=== PATIENT | female | born 1930 | race Caucasian/White ===

== ENCOUNTER 2017-10-27 02:52 | Emergency (ER) | payer MEDICARE ==
[~2017-10-27] VITALS: Ht 162.6 cm; Wt 72.6 kg
[~2017-10-27 02:52] MED LIST: Adalat Cc30 MG PO; Aspirin EC81 MG PO; CYCL100 PO; Cipro500 MG PO; DIPATR PO; DOCU100 PO; FERR325 PO; Glyburide5 MG PO; HYDR1TAB94 PO; IRON PO; IRON150C PO; Imuran50 MG PO; K-TAB ER20 MEQ PO; LABE100 PO; LABE200 PO; LEVFLO500 PO; LOSA50 PO; LOVA40 PO; MAGNESIUM PO; METR500 PO; NIFE10 PO; NIFE30ER PO; Norco 5-325 Ta1 EACH PO; PIOG45 PO; PROB500 PO; PROM25 PO; SITA100T2 PO; VIT D PO; Zofran Odt4 MG SL; [UNRECOGNIZED DRUG - OTHER] PO
[2017-10-27 03:16] LABS: BASOPHILS ABSOLUTE AUTO 0.01 K/mm3 (0.00-0.23); BASOPHILS PERCENT AUTO 0 % (0-2); EOSINOPHILS ABSOLUTE AUTO 0.03 K/mm3 (0.00-0.68); EOSINOPHILS PERCENT AUTO 1 % (0-6); Hematocrit 28.4 % (33.0-51.0); Hemoglobin 9.6 g/dL (11.5-16.0); IMMATURE GRAN ABSOLUTE AUTO 0.03 K/mm3 (0.00-0.10); IMMATURE GRAN PERCENT AUTO 1 % (0-1); LYMPHOCYTES ABSOLUTE AUTO 0.72 K/mm3 (0.84-5.20); LYMPHOCYTES PERCENT AUTO 11 % (21-46); MONOCYTES ABSOLUTE AUTO 0.99 K/mm3 (0.16-1.47); MONOCYTES PERCENT AUTO 16 % (4-13); Mean Corpuscular HGB 31.3 pg (26.0-34.0); Mean Corpuscular HGB Conc 33.8 g/dL (31.5-36.5); Mean Corpuscular Volume 93 fL (80-100); Mean Platelet Volume 9.8 fL (9.1-12.4); NEUTROPHILS ABSOLUTE AUTO 4.56 K/mm3 (1.96-9.15); NEUTROPHILS PERCENT AUTO 72 % (41-73); Platelet Count 204 K/mm3 (150-400); RDW Coefficient Variation 14.7 % (11.7-14.2); RDW Standard Deviation 49.8 fL (35.1-46.3); Red Blood Cell Count 3.07 M/mm3 (3.80-5.20); White Blood Cell Count 6.34 K/mm3 (4.00-11.30)
[2017-10-27 03:36] LABS: Albumin, Blood 2.4 g/dL (3.4-5.0); Albumin/Globulin Ratio 0.5 (0.8-1.8); Bilirubin, Total 0.6 mg/dL (0.1-1.0); Bun/Creatinine Ratio 16.8 (12.0-20.0); Calcium, Blood 8.5 mg/dL (8.5-10.1); Creatinine, Blood 1.01 mg/dL (0.40-1.00); Globulin, Blood 4.4 g/dL (2.2-4.0); Potassium, Blood 3.4 mmol/L (3.5-5.5); Total Protein, Blood 6.8 g/dL (6.4-8.2)
[2017-10-27 04:38] LABS: Source, Urine Catheter
[2017-10-27 04:41] LABS: Appearance, Urine Clear (Clear); Bilirubin, Urine Neg (Neg); Blood, Urine 1+ (Neg); Color, Urine Amber (P-Yellow); Glucose Qualitative, Urine Neg (Neg); Ketones, Urine 1+ (Neg); Leukocyte Esterase, Urine 2+ (Neg); Nitrite, Urine Neg (Neg); Protein, Urine 2+ (Neg); Urobilinogen, Urine NORM (Normal)
[2017-10-27 04:47] LABS: Amorphous Mod (0-Heavy); Bacteria Few /hpf; Hyaline Casts 0-2 /lpf (0-2); Red Blood Cells, Urine 0-2 /hpf (0-2); Squamous Epithelial Cells Not Seen /hpf (Few)
== END 2017-10-27 05:41 | disposition home or self-care (01) ==
LOC: ER 02:52
PROVIDERS: Emergency Medicine
DX: S40.011A Contusion of right shoulder, initial encounter (principal); E86.0 Dehydration; K57.32 Diverticulitis of large intestine without perforation or abscess without bleeding; W01.198A Fall on same level from slipping, tripping and stumbling with subsequent striking against other object, initial encounter; Z88.8 Allergy status to other drugs, medicaments and biological substances; Z79.899 Other long term (current) drug therapy; Z79.82 Long term (current) use of aspirin; Z79.2 Long term (current) use of antibiotics; I10 Essential (primary) hypertension; E11.9 Type 2 diabetes mellitus without complications
CPT/HCPCS: 36415; 51798; 73030; 80053; 81001; 83690; 85025; 87086; 93005; 93010; 99284; P9612

== ENCOUNTER 2017-10-29 10:55 | Emergency (ER) | payer MEDICARE ==
[~2017-10-29] VITALS: Ht 165.1 cm; Wt 77.1 kg
[2017-10-29] MEDS ORDERED: Cyclobenzaprine5 MG PO (12:39)
== END 2017-10-29 12:56 | disposition home or self-care (01) ==
LOC: ER 10:55
DX: S40.011A Contusion of right shoulder, initial encounter (principal); I10 Essential (primary) hypertension; E11.9 Type 2 diabetes mellitus without complications; Z91.09 Other allergy status, other than to drugs and biological substances; Z79.899 Other long term (current) drug therapy; Z79.82 Long term (current) use of aspirin; W19.XXXA Unspecified fall, initial encounter
CPT/HCPCS: 82272; 99284

== ENCOUNTER 2018-12-24 07:45 | Emergency (ER) | payer MEDICARE ==
[~2018-12-24] VITALS: Ht 162.6 cm; Wt 72.6 kg
[~2018-12-24 07:45] MED LIST changes: +ACET325 PO; +Cyclobenzaprine5 MG PO; +GAVILAX17 GM PO; +GLIP5ER PO; +LEVO750 PO; +PANT40 PO; +Pred Forte1 ML BOTHEYES; +SACC250C PO
[2018-12-24] MEDS ORDERED: Valtrex1000 MG PO (08:11)
== END 2018-12-24 08:27 | disposition home or self-care (01) ==
LOC: ER 07:45
DX: B02.9 Zoster without complications (principal); Z79.899 Other long term (current) drug therapy; Z79.82 Long term (current) use of aspirin; Z91.048 Other nonmedicinal substance allergy status; Z79.52 Long term (current) use of systemic steroids; E11.9 Type 2 diabetes mellitus without complications; I10 Essential (primary) hypertension
CPT/HCPCS: 99282

== ENCOUNTER 2019-01-03 04:42 | Inpatient (IN) | payer MEDICARE ==
[~2019-01-03] VITALS: Ht 162.6 cm; Wt 75.9 kg
[~2019-01-03 04:42] MED LIST changes: +Valtrex1000 MG PO
[2019-01-03 05:00] LABS: Source, Urine Catheter
[2019-01-03 05:04] LABS: BASOPHILS ABSOLUTE AUTO 0.01 K/mm3 (0.00-0.23); BASOPHILS PERCENT AUTO 0 % (0-2); EOSINOPHILS ABSOLUTE AUTO 0.02 K/mm3 (0.00-0.68); EOSINOPHILS PERCENT AUTO 0 % (0-6); Hematocrit 25.2 % (33.0-51.0); Hemoglobin 8.5 g/dL (11.5-16.0); IMMATURE GRAN ABSOLUTE AUTO 0.04 K/mm3 (0.00-0.10); IMMATURE GRAN PERCENT AUTO 1 % (0-1); LYMPHOCYTES ABSOLUTE AUTO 0.41 K/mm3 (0.84-5.20); LYMPHOCYTES PERCENT AUTO 5 % (21-46); MONOCYTES ABSOLUTE AUTO 1.01 K/mm3 (0.16-1.47); MONOCYTES PERCENT AUTO 13 % (4-13); Mean Corpuscular HGB 32.6 pg (26.0-34.0); Mean Corpuscular HGB Conc 33.7 g/dL (31.5-36.5); Mean Corpuscular Volume 97 fL (80-100); Mean Platelet Volume 10.2 fL (9.1-12.4); NEUTROPHILS ABSOLUTE AUTO 6.27 K/mm3 (1.96-9.15); NEUTROPHILS PERCENT AUTO 81 % (41-73); Platelet Count 186 K/mm3 (150-400); RDW Coefficient Variation 14.6 % (11.7-14.2); RDW Standard Deviation 50.5 fL (35.1-46.3); Red Blood Cell Count 2.61 M/mm3 (3.80-5.20); White Blood Cell Count 7.76 K/mm3 (4.00-11.30)
[2019-01-03 05:05] LABS: Blood, Urine 1+ (Neg); Glucose Qualitative, Urine Neg (Neg); Ketones, Urine 1+ (Neg); Leukocyte Esterase, Urine 3+ (Neg); Nitrite, Urine Neg (Neg); Protein, Urine 2+ (Neg); Specific Gravity, Urine 1.015 (1.003-1.022); Urobilinogen, Urine 1+ (Normal)
[2019-01-03 05:10] LABS: Appearance, Urine Cloudy (Clear); Bilirubin, Urine 1+ (Neg); Color, Urine Amber (P-Yellow)
[2019-01-03 05:11] LABS: Amorphous Light (0-Heavy); Bacteria Many /hpf; Red Blood Cells, Urine 0-2 /hpf (0-2); Squamous Epithelial Cells Few /hpf (Few); White Blood Cells, Urine 50-100 /hpf (0-5)
[2019-01-03] MEDS ORDERED: INSR10I SC (05:17)
[2019-01-03] MEDS ORDERED: [UNRECOGNIZED DRUG - OTHER] (05:18)
[2019-01-03 05:22] LABS: Albumin, Blood 2.1 g/dL (3.4-5.0); Albumin/Globulin Ratio 0.5 (0.8-1.8); Bilirubin, Total 0.7 mg/dL (0.1-1.0); Bun/Creatinine Ratio 28.8 (12.0-20.0); Calcium, Blood 8.5 mg/dL (8.5-10.1); Creatinine, Blood 1.46 mg/dL (0.40-1.00); Globulin, Blood 4.2 g/dL (2.2-4.0); Potassium, Blood 3.7 mmol/L (3.5-5.5); Total Protein, Blood 6.3 g/dL (6.4-8.2)
--- NOTE | 2019-01-03 06:44 | NUR ---
Transfer report from Felicita MILIAN in ER recieved on 88 year old Female with hx of renal transplant and type 2 diabetes UTI, recent shingles currently dry, weakness, acute renal failure. Await admission.
[2019-01-03] MEDS ORDERED: Adalat Cc30 MG PO (08:25)
[2019-01-03] MEDS ORDERED: BASAGLAR K100 UNIT/1 SC (08:47)
[2019-01-03] MEDS ORDERED: LOSARTAN POTASS25 M2 (08:47)
[2019-01-03] MEDS ORDERED: CALC.25 (08:47)
--- NOTE | 2019-01-03 18:52 | NUR ---
SHIFT SUMMARY PT IS A NEW ADMISSION THIS AM AT SHIFT CHANGE. PT HAS BEEN SLEEPING A LOT OF THE SHIFT. MEDICATED FOR PAIN X1 THIS SHIFT. PT REPORTS FEELING BETTER. PT UP TO CHAIR WITH OT BUT BECAME VERY WEAK AND REQUESTED TO GO BACK TO BED. ONE PERSON ASSIST TO BED. IVF INFUSING WITHOUT DIFFICULTY. PT HAS HAD NO FURTHER REQUESTS OR COMPLAINTS THIS SHIFT. NO ACUTE CHANGES. CALL LIGHT IN REACH. WILL CONTINUE TO MONITOR AND REPORT TO ONCOMING RN.
--- NOTE | 2019-01-03 19:50 | NUR ---
DR Meet Miranda. called about consult. He rx to check cyclosporine level in AM. He will see PT later tonight. PT informed.
[2019-01-04 04:51] LABS: BASOPHILS ABSOLUTE AUTO 0.01 K/mm3 (0.00-0.23); BASOPHILS PERCENT AUTO 0 % (0-2); EOSINOPHILS ABSOLUTE AUTO 0.04 K/mm3 (0.00-0.68); EOSINOPHILS PERCENT AUTO 1 % (0-6); Hematocrit 25.9 % (33.0-51.0); Hemoglobin 9.1 g/dL (11.5-16.0); IMMATURE GRAN ABSOLUTE AUTO 0.03 K/mm3 (0.00-0.10); IMMATURE GRAN PERCENT AUTO 0 % (0-1); LYMPHOCYTES ABSOLUTE AUTO 0.46 K/mm3 (0.84-5.20); LYMPHOCYTES PERCENT AUTO 6 % (21-46); MONOCYTES PERCENT AUTO 13 % (4-13); Mean Corpuscular HGB Conc 35.1 g/dL (31.5-36.5); Mean Corpuscular Volume 97 fL (80-100); Mean Platelet Volume 9.9 fL (9.1-12.4); NEUTROPHILS ABSOLUTE AUTO 6.13 K/mm3 (1.96-9.15); NEUTROPHILS PERCENT AUTO 80 % (41-73); Platelet Count 193 K/mm3 (150-400); RDW Coefficient Variation 14.9 % (11.7-14.2); RDW Standard Deviation 51.8 fL (35.1-46.3); Red Blood Cell Count 2.68 M/mm3 (3.80-5.20); White Blood Cell Count 7.67 K/mm3 (4.00-11.30)
[2019-01-04 05:13] LABS: Albumin, Blood 1.7 g/dL (3.4-5.0); Anion Gap 9 mmol/L (6-16); Blood Urea Nitrogen 43 mg/dL (8-24); Bun/Creatinine Ratio 38.1 (12.0-20.0); CO2, Blood 20 mmol/L (21-32); CPK Creatine Kinase 548 U/L (26-193); Calcium, Blood 7.8 mg/dL (8.5-10.1); Chloride, Blood 105 mmol/L (98-108); Creatinine, Blood 1.13 mg/dL (0.40-1.00); Glomerular Filtration Rate 48 (60-); Glucose, Blood 253 mg/dL (70-99); Magnesium, Blood 1.9 mg/dL (1.6-2.4); Potassium, Blood 3.6 mmol/L (3.5-5.5); Sodium, Blood 134 mmol/L (136-145); Uric Acid, Blood 5.8 mg/dL (2.6-6.0)
--- NOTE | 2019-01-04 06:23 | NUR ---
Dr Reinier Dsouza in to see PT prior to midnight and reviewed plan of care for renal transplant PT withg recent MIKHAIL. PT familar with DR Dsouza and she shared grief over loss of spouse of 70 years last month. PT says she has 2 supportive Sons who assist her to stay in her own home.
--- NOTE | 2019-01-04 18:00 | NUR ---
SHIFT SUMMARY PATIENT DENIES NAUSEA AND SHORTNESS OF BREATH. PATIENT COMPLAINS OF ABDOMINAL PAIN AND HAS RUN LOW GRADE FEVER. TYLENOL GIVEN. NEW ORDERS FOR ENEMA AND SUPPOSITORY GIVEN. PATIENT HAD LARGE BM, STATES SHE IS FEELING SOMEWHAT BETTER. PATIENT WORKED WITH PT/OT TODAY. PATIENT UP ONE ASSIST W/FWW. CALL LIGHT IN REACH.
--- NOTE | 2019-01-04 18:18 | NUR ---
[facility] inital note: Mrs. Parikh was alone in room and told me she was "too tired" for visit. Then she began to talk about the loss of her last month and her many struggles leading up to his . They were 70 years. She responded well to theraputic listening and emotional normalization. She is non-caodaism, but appered to benefit from gentle budget counselor. Clearly, she is grieving and will benefit from continued budget counselor/support. I will continue to budget counselor as case-loead permits.
[2019-01-05 05:15] LABS: BASOPHILS ABSOLUTE AUTO 0.01 K/mm3 (0.00-0.23); BASOPHILS PERCENT AUTO 0 % (0-2); EOSINOPHILS ABSOLUTE AUTO 0.06 K/mm3 (0.00-0.68); EOSINOPHILS PERCENT AUTO 1 % (0-6); Hematocrit 24.5 % (33.0-51.0); Hemoglobin 8.3 g/dL (11.5-16.0); IMMATURE GRAN ABSOLUTE AUTO 0.05 K/mm3 (0.00-0.10); IMMATURE GRAN PERCENT AUTO 1 % (0-1); LYMPHOCYTES ABSOLUTE AUTO 0.44 K/mm3 (0.84-5.20); LYMPHOCYTES PERCENT AUTO 6 % (21-46); MONOCYTES ABSOLUTE AUTO 0.94 K/mm3 (0.16-1.47); MONOCYTES PERCENT AUTO 12 % (4-13); Mean Corpuscular HGB 32.2 pg (26.0-34.0); Mean Corpuscular HGB Conc 33.9 g/dL (31.5-36.5); Mean Corpuscular Volume 95 fL (80-100); Mean Platelet Volume 9.8 fL (9.1-12.4); NEUTROPHILS ABSOLUTE AUTO 6.08 K/mm3 (1.96-9.15); NEUTROPHILS PERCENT AUTO 80 % (41-73); Platelet Count 204 K/mm3 (150-400); RDW Coefficient Variation 15.3 % (11.7-14.2); RDW Standard Deviation 52.6 fL (35.1-46.3); Red Blood Cell Count 2.58 M/mm3 (3.80-5.20); White Blood Cell Count 7.58 K/mm3 (4.00-11.30)
[2019-01-05 05:41] LABS: Albumin, Blood 1.5 g/dL (3.4-5.0); Amylase, Blood 14 U/L (25-115); Anion Gap 8 mmol/L (6-16); Blood Urea Nitrogen 29 mg/dL (8-24); Bun/Creatinine Ratio 40.1 (12.0-20.0); CO2, Blood 19 mmol/L (21-32); Calcium, Blood 7.6 mg/dL (8.5-10.1); Chloride, Blood 108 mmol/L (98-108); Creatinine, Blood 0.72 mg/dL (0.40-1.00); Glomerular Filtration Rate >60 (60-); Glucose, Blood 202 mg/dL (70-99); Magnesium, Blood 1.8 mg/dL (1.6-2.4); Phosphorus, Blood 2.2 mg/dL (2.5-4.9); Potassium, Blood 3.7 mmol/L (3.5-5.5); Sodium, Blood 135 mmol/L (136-145)
--- NOTE | 2019-01-05 06:42 | NUR ---
SHIFT SUMMARY PT A/O NO C/O PAIN. SBA TO BA. SHE WAS ABLE TO SLEEP T/O NIGHT. CALL LIGHT IN REACH.
--- NOTE | 2019-01-05 15:19 | NUR ---
SHIFT SUMMARY NO ACUTE CHANGES. PATIENT DENIES PAIN, NAUSEA, AND SHORTNESS OF BREATH. PATIENT UP IN CHAIR FOR MEALS, WORKED WITH PT AND OT. KIM REPORTS SHE IS FEELING BETTER BUT STILL TIRED AND STIFF WITH MOVEMENT. CALL LIGHT IN REACH.
[2019-01-06 05:09] LABS: Hematocrit 24.3 % (33.0-51.0); Hemoglobin 8.2 g/dL (11.5-16.0)
[2019-01-06 05:45] LABS: Magnesium, Blood 1.9 mg/dL (1.6-2.4)
[2019-01-06 05:46] LABS: Albumin, Blood 1.6 g/dL (3.4-5.0); Anion Gap 10 mmol/L (6-16); Blood Urea Nitrogen 22 mg/dL (8-24); Bun/Creatinine Ratio 35.4 (12.0-20.0); CO2, Blood 20 mmol/L (21-32); Calcium, Blood 7.8 mg/dL (8.5-10.1); Chloride, Blood 108 mmol/L (98-108); Creatinine, Blood 0.62 mg/dL (0.40-1.00); Glomerular Filtration Rate >60 (60-); Glucose, Blood 166 mg/dL (70-99); Phosphorus, Blood 2.4 mg/dL (2.5-4.9); Potassium, Blood 3.7 mmol/L (3.5-5.5); Sodium, Blood 138 mmol/L (136-145)
--- NOTE | 2019-01-06 06:08 | NUR ---
SHIFT SUMMARY PT A/O C/O PAIN IN ABD AND MEDICATED PER EMAR. SHE SAID IT WAS ABLE TO RELIEVE HER PAIN. SHE WAS ABLE TO SLEEP ON AND OFF T/O NIGHT. SBA TO BSC. BED ALARM IN USE. CALL LIGHT IN REACH.
[2019-01-06 10:02] LABS: BASOPHILS ABSOLUTE AUTO 0.01 K/mm3 (0.00-0.23); BASOPHILS PERCENT AUTO 0 % (0-2); EOSINOPHILS ABSOLUTE AUTO 0.12 K/mm3 (0.00-0.68); EOSINOPHILS PERCENT AUTO 2 % (0-6); Hematocrit 24.8 % (33.0-51.0); Hemoglobin 8.4 g/dL (11.5-16.0); IMMATURE GRAN ABSOLUTE AUTO 0.05 K/mm3 (0.00-0.10); IMMATURE GRAN PERCENT AUTO 1 % (0-1); LYMPHOCYTES ABSOLUTE AUTO 0.65 K/mm3 (0.84-5.20); LYMPHOCYTES PERCENT AUTO 9 % (21-46); MONOCYTES ABSOLUTE AUTO 0.84 K/mm3 (0.16-1.47); MONOCYTES PERCENT AUTO 12 % (4-13); Mean Corpuscular HGB 32.9 pg (26.0-34.0); Mean Corpuscular HGB Conc 33.9 g/dL (31.5-36.5); Mean Corpuscular Volume 97 fL (80-100); Mean Platelet Volume 10.1 fL (9.1-12.4); NEUTROPHILS ABSOLUTE AUTO 5.36 K/mm3 (1.96-9.15); NEUTROPHILS PERCENT AUTO 76 % (41-73); Platelet Count 244 K/mm3 (150-400); RDW Coefficient Variation 15.5 % (11.7-14.2); RDW Standard Deviation 54.9 fL (35.1-46.3); Red Blood Cell Count 2.55 M/mm3 (3.80-5.20); White Blood Cell Count 7.03 K/mm3 (4.00-11.30)
--- NOTE | 2019-01-06 18:22 | NUR ---
SHIFT SUMMARY NO ACUTE COCNERNS PER PATIENT. SHE IS PELASANT, AND MOVING INDEPENDENT IN THE ROOM. CALLS APPROPRIATELY, AND ALERT AND ORIENTED.
--- NOTE | 2019-01-07 04:50 | NUR ---
SHIFT SUMMARY PT REPORTS SHE IS FEELING "WEAKER" TONIGHT. SBA TO BSC, PT REQUIRES A FEW EXTRA MINS TO SIT AT SIDE OF BED D/T FEELING DIZZY. LS DIM, WITH AUDIBLE WHEEZE AND SOB UPON EXERTION. O2 SATS WNL ON RA. ABD MOD DISTENDED, BT NORMOACTIVE X4. CBG 193 TONIGHT, ADMINISTERED 10 UNITS LANTUS PER ORDERS. WILL CONT T MONITOR AND PROVIDE CARE UNTIL PRESUMED BY ONCOMING RN.
[2019-01-07 05:20] LABS: BASOPHILS ABSOLUTE AUTO 0.01 K/mm3 (0.00-0.23); BASOPHILS PERCENT AUTO 0 % (0-2); EOSINOPHILS ABSOLUTE AUTO 0.15 K/mm3 (0.00-0.68); EOSINOPHILS PERCENT AUTO 3 % (0-6); Hematocrit 24.2 % (33.0-51.0); Hemoglobin 8.1 g/dL (11.5-16.0); IMMATURE GRAN ABSOLUTE AUTO 0.06 K/mm3 (0.00-0.10); IMMATURE GRAN PERCENT AUTO 1 % (0-1); LYMPHOCYTES ABSOLUTE AUTO 0.71 K/mm3 (0.84-5.20); LYMPHOCYTES PERCENT AUTO 13 % (21-46); MONOCYTES ABSOLUTE AUTO 0.73 K/mm3 (0.16-1.47); MONOCYTES PERCENT AUTO 14 % (4-13); Mean Corpuscular HGB 31.6 pg (26.0-34.0); Mean Corpuscular HGB Conc 33.5 g/dL (31.5-36.5); Mean Corpuscular Volume 95 fL (80-100); Mean Platelet Volume 9.6 fL (9.1-12.4); NEUTROPHILS ABSOLUTE AUTO 3.76 K/mm3 (1.96-9.15); NEUTROPHILS PERCENT AUTO 69 % (41-73); Platelet Count 281 K/mm3 (150-400); RDW Coefficient Variation 15.5 % (11.7-14.2); RDW Standard Deviation 53.3 fL (35.1-46.3); Red Blood Cell Count 2.56 M/mm3 (3.80-5.20); White Blood Cell Count 5.42 K/mm3 (4.00-11.30)
[2019-01-07 05:46] LABS: Albumin, Blood 1.7 g/dL (3.4-5.0); Anion Gap 8 mmol/L (6-16); Blood Urea Nitrogen 14 mg/dL (8-24); Bun/Creatinine Ratio 26.8 (12.0-20.0); CO2, Blood 22 mmol/L (21-32); Calcium, Blood 7.7 mg/dL (8.5-10.1); Chloride, Blood 106 mmol/L (98-108); Creatinine, Blood 0.52 mg/dL (0.40-1.00); Glomerular Filtration Rate >60 (60-); Glucose, Blood 137 mg/dL (70-99); Magnesium, Blood 1.8 mg/dL (1.6-2.4); Phosphorus, Blood 2.7 mg/dL (2.5-4.9); Potassium, Blood 3.9 mmol/L (3.5-5.5); Sodium, Blood 136 mmol/L (136-145)
--- NOTE | 2019-01-07 18:52 | NUR ---
SHIFT SUMMARY PATIENT IS PLEASANT, NO ACUTE CONCERNS. CALLS APPROPRIATELY. SHE IS PLEASANT AND HAS WORKED ON WALKING MORE TODAY.
[2019-01-08 04:36] LABS: BASOPHILS ABSOLUTE AUTO 0.01 K/mm3 (0.00-0.23); BASOPHILS PERCENT AUTO 0 % (0-2); EOSINOPHILS ABSOLUTE AUTO 0.19 K/mm3 (0.00-0.68); EOSINOPHILS PERCENT AUTO 3 % (0-6); Hematocrit 26.1 % (33.0-51.0); Hemoglobin 8.7 g/dL (11.5-16.0); IMMATURE GRAN ABSOLUTE AUTO 0.06 K/mm3 (0.00-0.10); IMMATURE GRAN PERCENT AUTO 1 % (0-1); LYMPHOCYTES PERCENT AUTO 16 % (21-46); MONOCYTES ABSOLUTE AUTO 0.74 K/mm3 (0.16-1.47); MONOCYTES PERCENT AUTO 13 % (4-13); Mean Corpuscular HGB 31.8 pg (26.0-34.0); Mean Corpuscular HGB Conc 33.3 g/dL (31.5-36.5); Mean Corpuscular Volume 95 fL (80-100); Mean Platelet Volume 9.2 fL (9.1-12.4); NEUTROPHILS ABSOLUTE AUTO 3.63 K/mm3 (1.96-9.15); NEUTROPHILS PERCENT AUTO 66 % (41-73); Platelet Count 325 K/mm3 (150-400); RDW Coefficient Variation 15.7 % (11.7-14.2); RDW Standard Deviation 54.4 fL (35.1-46.3); Red Blood Cell Count 2.74 M/mm3 (3.80-5.20); White Blood Cell Count 5.53 K/mm3 (4.00-11.30)
[2019-01-08 04:56] LABS: Albumin, Blood 1.8 g/dL (3.4-5.0); Anion Gap 9 mmol/L (6-16); Blood Urea Nitrogen 15 mg/dL (8-24); Bun/Creatinine Ratio 27.8 (12.0-20.0); CO2, Blood 22 mmol/L (21-32); Calcium, Blood 8.1 mg/dL (8.5-10.1); Chloride, Blood 109 mmol/L (98-108); Creatinine, Blood 0.54 mg/dL (0.40-1.00); Glomerular Filtration Rate >60 (60-); Glucose, Blood 143 mg/dL (70-99); Magnesium, Blood 1.8 mg/dL (1.6-2.4); Phosphorus, Blood 3.1 mg/dL (2.5-4.9); Potassium, Blood 4.1 mmol/L (3.5-5.5); Sodium, Blood 140 mmol/L (136-145)
--- NOTE | 2019-01-08 05:08 | NUR ---
SHIFT SUMMARY NO ACUTE CHANGES TONIGHT, PT IS PLEASANT AND COOPERATIVE WITH CARE. PT IS WORKING ON IMPROVING STRENGTH, EXERCISE, AND AMBULATION/GAIT. AMBULATES SEVERAL TIMES T/O NIGHT TO BR WITH MINIMAL ASSISTANCE. SBA c FWW. PT VOICES MOTIVATION TO IMPROVE STRENGTH. CBG 171 TONIGHT, ADMINISTERED 10 UNITS LANTUS PER EMAR. WILL CONT TO MONITOR AND PROVIDE CARE UNTIL PRESUMED BY ONCOMING RN.
[2019-01-08] MEDS ORDERED: LEVFLO500 PO (11:33)
[2019-01-08] MEDS ORDERED: Florastor250 MG PO (11:34)
--- NOTE | 2019-01-08 13:39 | NUR ---
DISCHARGE SUMMARY PATIENT IS PLEASANT, NO ACUTE CONCERNS. ALL INFORMATION WAS GIVEN TO THE PATIENT AND HER MEDICATIONS WERE SENT TO [facility].
== END 2019-01-08 13:05 | disposition home or self-care (01) | DRG 872 ==
LOC: ER 04:42 → MEDS 06:14 → ENPENDDIS 01-08 10:50 → MEDS 01-08 13:05
PROVIDERS: Emergency Medicine; Family Medicine; Internal Medicine; Internal Medicine Gastroenterology; Internal Medicine Nephrology; ADMIT Hospitalist
DX: A41.9 Sepsis, unspecified organism (principal); N17.9 Acute kidney failure, unspecified; E87.1 Hypo-osmolality and hyponatremia; N12 Tubulo-interstitial nephritis, not specified as acute or chronic; T86.12 Kidney transplant failure; B96.20 Unspecified Escherichia coli [E. coli] as the cause of diseases classified elsewhere; E11.9 Type 2 diabetes mellitus without complications; Z79.4 Long term (current) use of insulin; Z79.82 Long term (current) use of aspirin
CPT/HCPCS: 36415; 51702; 71045; 74176; 76776; 80053; 80069; 80158; 81001; 82150; 82533; 82550; 82947; 83605; 83690; 83735; 83880; 84443; 84550; 85014; 85018; 85025; 87040; 87077; 87086; 87186; 96361-59; 96365-59; 97110; 97116; 97162; 97165; 97530; 97535; 99285-25; A9270; C9113; J0696; J0713; J0881; J1644; J1650; J3480; J7030; J7060; J7500; J7502

== ENCOUNTER 2019-01-10 01:20 | Inpatient (IN) | payer MEDICARE ==
[~2019-01-10] VITALS: Ht 162.6 cm; Wt 83.9 kg
[~2019-01-10 01:20] MED LIST changes: +BASAGLAR K100 UNIT/1 SC; +CALC.25; +Florastor250 MG PO; +INSR10I SC; +LOSARTAN POTASS25 M2; +[UNRECOGNIZED DRUG - OTHER]
[2019-01-10 01:51] LABS: BASOPHILS ABSOLUTE AUTO 0.01 K/mm3 (0.00-0.23); BASOPHILS PERCENT AUTO 0 % (0-2); EOSINOPHILS ABSOLUTE AUTO 0.11 K/mm3 (0.00-0.68); EOSINOPHILS PERCENT AUTO 2 % (0-6); Hematocrit 23.6 % (33.0-51.0); IMMATURE GRAN ABSOLUTE AUTO 0.07 K/mm3 (0.00-0.10); IMMATURE GRAN PERCENT AUTO 1 % (0-1); LYMPHOCYTES ABSOLUTE AUTO 0.97 K/mm3 (0.84-5.20); LYMPHOCYTES PERCENT AUTO 17 % (21-46); MONOCYTES ABSOLUTE AUTO 0.65 K/mm3 (0.16-1.47); MONOCYTES PERCENT AUTO 11 % (4-13); Mean Corpuscular HGB 32.4 pg (26.0-34.0); Mean Corpuscular HGB Conc 33.9 g/dL (31.5-36.5); Mean Corpuscular Volume 96 fL (80-100); Mean Platelet Volume 9.2 fL (9.1-12.4); NEUTROPHILS ABSOLUTE AUTO 4.05 K/mm3 (1.96-9.15); NEUTROPHILS PERCENT AUTO 69 % (41-73); Platelet Count 381 K/mm3 (150-400); RDW Coefficient Variation 15.5 % (11.7-14.2); RDW Standard Deviation 54.4 fL (35.1-46.3); Red Blood Cell Count 2.47 M/mm3 (3.80-5.20); White Blood Cell Count 5.86 K/mm3 (4.00-11.30)
[2019-01-10 02:11] LABS: Alanine Aminotransfer (ALT/SGP 21 U/L (12-78); Albumin/Globulin Ratio 0.4 (0.8-1.8); Alk Phos 96 U/L (50-136); Anion Gap 11 mmol/L (6-16); Aspartate Aminotrans (AST/SGOT 25 U/L (12-37); Bilirubin, Total 0.6 mg/dL (0.1-1.0); Blood Urea Nitrogen 23 mg/dL (8-24); Bun/Creatinine Ratio 26.2 (12.0-20.0); CO2, Blood 21 mmol/L (21-32); Calcium, Blood 7.9 mg/dL (8.5-10.1); Chloride, Blood 101 mmol/L (98-108); Creatinine, Blood 0.88 mg/dL (0.40-1.00); Globulin, Blood 4.7 g/dL (2.2-4.0); Glomerular Filtration Rate >60 (60-); Glucose, Blood 217 mg/dL (70-99); Potassium, Blood 4.4 mmol/L (3.5-5.5); Sodium, Blood 133 mmol/L (136-145); Total Protein, Blood 6.7 g/dL (6.4-8.2)
[2019-01-10 03:34] LABS: Source, Urine Clean Catch
[2019-01-10 03:35] LABS: Bilirubin, Urine Neg (Neg); Blood, Urine Neg (Neg); Glucose Qualitative, Urine Neg (Neg); Ketones, Urine Neg (Neg); Leukocyte Esterase, Urine Neg (Neg); Nitrite, Urine Neg (Neg); Protein, Urine 1+ (Neg); Urobilinogen, Urine NORM (Normal)
[2019-01-10 03:38] LABS: Appearance, Urine Clear (Clear); Color, Urine Yellow (P-Yellow)
--- NOTE | 2019-01-10 18:19 | NUR ---
ALERT. ORIENTED. FORGETFUL. UNLABORED RESPIRATIONS. SATS HIGH 90'S ON R.A. HAS NOT C/O PAIN. GIL DRAINING. ASSOCIATE DIRECTOR REGULATORY AFFAIRS ADVISED WILL NEED NEW IV WILL BE GETTING BLOOD TRANSFUSION. ONE PERSON STANDBY ASSIST. TELE ON AND PER NED ORTIZ AT 75. BED IN LOW POSITION. CALL LIGHT WITHIN REACH. [facility]
--- NOTE | 2019-01-10 22:15 | NUR ---
DR Meet Miranda. in to see PT and RX 1 x order lasix 20 mg IV 1/[address] way through blood transfusion. PT tolerating blood transfusion without problems. Cordova cath patent draining large amts of clear urine.
--- NOTE | 2019-01-11 03:08 | NUR ---
PT tolerated blood transfusion and DR Dsouza came and gave order to give 20 mg IV lasix 1/2 way through blood transfusion. She has peraza cath and has had large amts of clear yellow urine out. PT has around 2000 ml out this shift plus more. She was up and had pelleted stool which was sent to lab for guiac. Bowel care orders obtained for sennecot and additional stool softener prn. PT on tele with frequent PVC PAC. rate 72. Blood glucose elevated at 202 with sliding scale and lantus insulin given. Recent dc from hospital and only home 2 days prior to readmission. had sepsis in Apr 2018. Hx of renal transplant 1994 and prior dialysis last 1994.
[2019-01-11 05:05] LABS: BASOPHILS ABSOLUTE AUTO 0.01 K/mm3 (0.00-0.23); BASOPHILS PERCENT AUTO 0 % (0-2); EOSINOPHILS ABSOLUTE AUTO 0.14 K/mm3 (0.00-0.68); EOSINOPHILS PERCENT AUTO 3 % (0-6); Hematocrit 28.3 % (33.0-51.0); Hemoglobin 9.3 g/dL (11.5-16.0); IMMATURE GRAN ABSOLUTE AUTO 0.04 K/mm3 (0.00-0.10); IMMATURE GRAN PERCENT AUTO 1 % (0-1); LYMPHOCYTES ABSOLUTE AUTO 0.88 K/mm3 (0.84-5.20); LYMPHOCYTES PERCENT AUTO 16 % (21-46); MONOCYTES ABSOLUTE AUTO 0.63 K/mm3 (0.16-1.47); MONOCYTES PERCENT AUTO 11 % (4-13); Mean Corpuscular HGB 31.1 pg (26.0-34.0); Mean Corpuscular HGB Conc 32.9 g/dL (31.5-36.5); Mean Corpuscular Volume 95 fL (80-100); Mean Platelet Volume 9.4 fL (9.1-12.4); NEUTROPHILS ABSOLUTE AUTO 3.86 K/mm3 (1.96-9.15); NEUTROPHILS PERCENT AUTO 70 % (41-73); Platelet Count 410 K/mm3 (150-400); RDW Coefficient Variation 17.1 % (11.7-14.2); RDW Standard Deviation 57.9 fL (35.1-46.3); Red Blood Cell Count 2.99 M/mm3 (3.80-5.20); White Blood Cell Count 5.56 K/mm3 (4.00-11.30)
[2019-01-11 05:23] LABS: Alanine Aminotransfer (ALT/SGP 18 U/L (12-78); Albumin, Blood 1.9 g/dL (3.4-5.0); Albumin/Globulin Ratio 0.4 (0.8-1.8); Alk Phos 94 U/L (50-136); Anion Gap 9 mmol/L (6-16); Aspartate Aminotrans (AST/SGOT 12 U/L (12-37); Bilirubin, Total 0.7 mg/dL (0.1-1.0); Blood Urea Nitrogen 20 mg/dL (8-24); Bun/Creatinine Ratio 25.2 (12.0-20.0); CO2, Blood 26 mmol/L (21-32); Calcium, Blood 8.1 mg/dL (8.5-10.1); Chloride, Blood 103 mmol/L (98-108); Creatinine, Blood 0.79 mg/dL (0.40-1.00); Globulin, Blood 4.7 g/dL (2.2-4.0); Glomerular Filtration Rate >60 (60-); Glucose, Blood 165 mg/dL (70-99); Magnesium, Blood 1.5 mg/dL (1.6-2.4); Phosphorus, Blood 3.5 mg/dL (2.5-4.9); Potassium, Blood 4.3 mmol/L (3.5-5.5); Sodium, Blood 138 mmol/L (136-145); Total Protein, Blood 6.6 g/dL (6.4-8.2)
[2019-01-11 06:32] LABS: Stool Occult Blood Guaiac 1 Neg (Neg)
--- NOTE | 2019-01-11 09:12 | NUR ---
ASKED ABOUT MAG P.O. JUST GAVE IV MAG 1GRAM. DON'T GIVE THIS AM BUT CAN LEAVE ON FOR REST OF WEEK. CAN D'C TELE.
--- NOTE | 2019-01-11 16:01 | NUR ---
ALERT. ORIENTED. FORGETFUL. 24 HOUR URINE STARTED. CATH CARE. DENIES ABD PAIN. IV PATENT. UNLABORED RESPIRATIONS. ONE PERSON STANDBY ASSIST. PLEASANT. COOPERATIVE. TELE D'C. BED IN LOW POSITION. ABLE TO MAKE NEEDS KNOWN. WCTM.
--- NOTE | 2019-01-12 02:13 | NUR ---
PT continues on 24 hour urine collection and continues with peraza cath for urinary retention. She has blood glucose checks ac hs and bg elevated at 292. On LANTUS & low sliding scale insulin. On cardiac meds with some elevated BPS. Tele was dc. Denies acute pain. Continues constipated sennakot given as prn to tx with no effect yet.
[2019-01-12 05:09] LABS: Hematocrit 30.6 % (33.0-51.0); Hemoglobin 10.1 g/dL (11.5-16.0)
[2019-01-12 05:32] LABS: Albumin, Blood 2.1 g/dL (3.4-5.0); Anion Gap 8 mmol/L (6-16); Blood Urea Nitrogen 20 mg/dL (8-24); Bun/Creatinine Ratio 29.9 (12.0-20.0); CO2, Blood 27 mmol/L (21-32); Calcium, Blood 8.7 mg/dL (8.5-10.1); Chloride, Blood 102 mmol/L (98-108); Creatinine, Blood 0.67 mg/dL (0.40-1.00); Glomerular Filtration Rate >60 (60-); Glucose, Blood 165 mg/dL (70-99); Magnesium, Blood 1.8 mg/dL (1.6-2.4); Potassium, Blood 4.1 mmol/L (3.5-5.5); Sodium, Blood 137 mmol/L (136-145)
[2019-01-12 09:49] LABS: Protein, Urine Quantitative 17.3 mg/dL (0.0-11.9)
--- NOTE | 2019-01-12 17:31 | NUR ---
SHIFT SUMMARY 24 HR URINE COLLECTION COMPLETED, JEFFERY IA-ED. PT ALERT AND ORIENTED X4, AMBULATES TO CHAIR WITH 1 ASSIST. PT DENIES PAIN, SOB, NAUSEA, HAS MINIMAL EDEMA. 1X SUPPOSITORY ORDERED AND GIVEN. PATIENT HAD MEDIUM FORMED BROWN BM IN COMMODE AND VOIDED GOOD AMOUNT OF URINE. BLOOD SUGARS MONITORED AND REGULAR INSULIN GIVEN PER SS ORDER. WILL CONTINUE TO MONITOR OUTPUT.
--- NOTE | 2019-01-13 04:52 | NUR ---
PATIENT SLEPT WEL THROUGH THE NIGHT. PATIENT UP TO THE BATHROOM WITH SBA AND WALKER. PATIENT WALKING TO THE BATHROOM, STEADY ON HER FEET. PATIENT ABLE TO MOVE AROUND IN BED INDEPENDENTLY. PATIENT DENIES ANY PAIN. CALL LIGHT WITH IN REACH. VITALS STABLE.
[2019-01-13 04:55] LABS: Hematocrit 31.3 % (33.0-51.0)
[2019-01-13 05:25] LABS: Albumin, Blood 2.2 g/dL (3.4-5.0); Anion Gap 7 mmol/L (6-16); Blood Urea Nitrogen 25 mg/dL (8-24); Bun/Creatinine Ratio 38.2 (12.0-20.0); CO2, Blood 28 mmol/L (21-32); Calcium, Blood 9.1 mg/dL (8.5-10.1); Chloride, Blood 101 mmol/L (98-108); Creatinine, Blood 0.66 mg/dL (0.40-1.00); Glomerular Filtration Rate >60 (60-); Glucose, Blood 194 mg/dL (70-99); Magnesium, Blood 1.7 mg/dL (1.6-2.4); Phosphorus, Blood 3.2 mg/dL (2.5-4.9); Potassium, Blood 4.3 mmol/L (3.5-5.5); Sodium, Blood 136 mmol/L (136-145)
--- NOTE | 2019-01-13 06:00 | NUR ---
PATIENT COMPLAINING OF PAIN OF 8/10 IN RIGHT ARM WHERE BLOOD WAS TAKEN. PATIENT STATES THE PAIN HAS BEEN GETTING WORSE SINCE THE LABS WERE DRAWN. GIVEN PRN FENTANYL AND WARM BLANKET.
--- NOTE | 2019-01-13 06:15 | NUR ---
DR. SHEEHAN CALLED AT 0535 TO CHECK LABS. TAKEN ORDERS FOR KCL 8MEQ PO QOD STARTING TOMORROW, AND LASIX 40 MG QOD STARTING TOMORROW. DISCONTINUE LASIX 20MG IV AFTER MORNING DOSE TODAY. NO FURTHER ORDERS TODAY.
--- NOTE | 2019-01-13 06:50 | NUR ---
PATIENT CONTINUES TO COMPLAIN OF 7/10 PAIN IN RIGHT ARM. PATIENT CRYING AND HYPERVENTALATING AT TIMES. CALLED DR. NELSON WHO ORDER HYDROMORPHONE 0.5 IV NOW. NO FURTHER ORDERS TAKEN.
--- NOTE | 2019-01-13 18:03 | NUR ---
SHIFT SUMMARY PATIENT SOMEWHAT DROWSY AT BEGINNING OF SHIFT FROM NARCOTICS FOR R ARM PAIN. PAIN COMPLETELY RESOLVED BY [id number]. NO COMPLAINTS OF PAIN THROUGHOUT DAY. PATIENT ABLE TO MAKE NEEDS KNOWN. PATIENT SAT UP IN CHAIR MOST OF DAY. PT HAS MINIMAL EDEMA. ABD SOFT, PT HAD A FORMED BM TODAY. NO ISSUES VOIDING URINE. PATIENT WORKED WITH OT AND P.THERAPY, SHE HAD A LITTLE DIFFICULTY SITTING UP FROM A FLAT BED (LIKE SHE WOULD BE DOING AT HOME). VSS.
[2019-01-14 05:51] LABS: BASOPHILS ABSOLUTE AUTO 0.01 K/mm3 (0.00-0.23); BASOPHILS PERCENT AUTO 0 % (0-2); EOSINOPHILS ABSOLUTE AUTO 0.17 K/mm3 (0.00-0.68); EOSINOPHILS PERCENT AUTO 3 % (0-6); Hematocrit 30.7 % (33.0-51.0); Hemoglobin 10.1 g/dL (11.5-16.0); IMMATURE GRAN ABSOLUTE AUTO 0.03 K/mm3 (0.00-0.10); IMMATURE GRAN PERCENT AUTO 1 % (0-1); LYMPHOCYTES ABSOLUTE AUTO 1.17 K/mm3 (0.84-5.20); LYMPHOCYTES PERCENT AUTO 20 % (21-46); MONOCYTES ABSOLUTE AUTO 0.56 K/mm3 (0.16-1.47); MONOCYTES PERCENT AUTO 9 % (4-13); Mean Corpuscular HGB 30.9 pg (26.0-34.0); Mean Corpuscular HGB Conc 32.9 g/dL (31.5-36.5); Mean Corpuscular Volume 94 fL (80-100); NEUTROPHILS PERCENT AUTO 67 % (41-73); Platelet Count 443 K/mm3 (150-400); RDW Coefficient Variation 15.9 % (11.7-14.2); RDW Standard Deviation 54.4 fL (35.1-46.3); Red Blood Cell Count 3.27 M/mm3 (3.80-5.20); White Blood Cell Count 5.94 K/mm3 (4.00-11.30)
[2019-01-14 06:10] LABS: Magnesium, Blood 1.8 mg/dL (1.6-2.4)
[2019-01-14 06:11] LABS: Albumin, Blood 2.3 g/dL (3.4-5.0); Anion Gap 9 mmol/L (6-16); Blood Urea Nitrogen 21 mg/dL (8-24); Bun/Creatinine Ratio 38.1 (12.0-20.0); CO2, Blood 26 mmol/L (21-32); Calcium, Blood 9.2 mg/dL (8.5-10.1); Chloride, Blood 100 mmol/L (98-108); Creatinine, Blood 0.55 mg/dL (0.40-1.00); Glomerular Filtration Rate >60 (60-); Glucose, Blood 223 mg/dL (70-99); Phosphorus, Blood 3.3 mg/dL (2.5-4.9); Potassium, Blood 4.2 mmol/L (3.5-5.5); Sodium, Blood 135 mmol/L (136-145)
--- NOTE | 2019-01-14 06:14 | NUR ---
SHIFT SUMMARY: PATIENT HAS HAD A GOOD NIGHT, HAS BEEN UP SEVERAL TIMES WITH ONE PERSON ASSIST. CALL LIGHT HAS REMAINED WITH IN REACH AND USED APPROPRIATLY. MEDS WERE GIVEN PER EMAR. SHE HAS DENIED ANY PAIN OR DISCOMFORT. OR ANY OTHER CONCERNS THIS SHIFT. WILL REPORT TO DAY SHIFT RN.
[2019-01-14] MEDS ORDERED: LOSA25 PO (14:25)
--- NOTE | 2019-01-14 15:44 | NUR ---
PT AOX4 AND COOPERATIVE WITH CARE. DISCHARGED TODAY. ALL PAPERWORK REVIEWED AND EDUCTIONAL MATERIAL SENT. PT TRANSPORTED HOME BY SON. PT ESCORTED WITH PERSONAL BELONGINGS TO N ENTRANCE. NO DISTRESS NOTED.
== END 2019-01-14 15:03 | disposition home or self-care (01) | DRG 393 ==
LOC: ER 01:20 → MEDS 01:21
PROVIDERS: Emergency Medicine; Family Medicine; Internal Medicine Nephrology; ADMIT Family Medicine
PROC: 30233N1 Transfusion of Nonautologous Red Blood Cells into Peripheral Vein, Percutaneous Approach (ICD-10-PCS; principal; 2019-01-11)
DX: K55.9 Vascular disorder of intestine, unspecified (principal); I50.31 Acute diastolic (congestive) heart failure; N17.9 Acute kidney failure, unspecified; Z94.0 Kidney transplant status; E87.1 Hypo-osmolality and hyponatremia; N25.81 Secondary hyperparathyroidism of renal origin; N12 Tubulo-interstitial nephritis, not specified as acute or chronic; Z79.82 Long term (current) use of aspirin; Z79.4 Long term (current) use of insulin; M10.9 Gout, unspecified; Z90.09 Acquired absence of other part of head and neck; E87.5 Hyperkalemia; K59.00 Constipation, unspecified; I95.9 Hypotension, unspecified; E87.70 Fluid overload, unspecified; E88.09 Other disorders of plasma-protein metabolism, not elsewhere classified; D89.9 Disorder involving the immune mechanism, unspecified; R33.9 Retention of urine, unspecified; E11.9 Type 2 diabetes mellitus without complications; I11.0 Hypertensive heart disease with heart failure; D50.9 Iron deficiency anemia, unspecified
CPT/HCPCS: 36415; 36430; 51702; 51798; 74176; 80053; 80069; 81050; 82272; 82607; 82728; 82746; 82947; 83540; 83550; 83690; 83735; 83880; 84100; 84145; 84156; 85014; 85018; 85025; 86850; 86900; 86901; 86923; 93005; 93010; 93306; 96361-59; 96365; 96372; 96374-59; 96375; 96375-59; 96376; 97110; 97116; 97161; 97165; 97530; 99285-25; G0378; J1170; J1644; J1815; J1940; J2405; J3010; J3475; J7030; J7500; J7502; P9040

== ENCOUNTER → 2020-07-10 | Outpatient (CLI) | payer MEDICARE ==
[~2020-07-10] MED LIST changes: +LOSA25 PO
== END | disposition home or self-care (01) ==
LOC: LAB SHORT 12:50 → LAB 12:50
DX: L57.0 Actinic keratosis (principal)
CPT/HCPCS: 88305